=== PATIENT | male | born 1985 | race African-American/Black ===

== ENCOUNTER 2017-03-19 11:22 | Emergency (ER) | payer OTHER ==
[~2017-03-19] VITALS: Ht 182.9 cm; Wt 136.1 kg
[2017-03-19 11:39] VITALS: BP 138/96
[2017-03-19] MEDS ORDERED: NAPROSYN500 MG PO (12:39)
== END 2017-03-19 12:55 | disposition home or self-care (01) ==
LOC: EME 11:22
PROC: 0H9QXZZ Drainage of Finger Nail, External Approach (ICD-10-PCS; principal; 2017-03-19)
DX: S60.131A Contusion of right middle finger with damage to nail, initial encounter (principal); S60.141A Contusion of right ring finger with damage to nail, initial encounter; W23.0XXA Caught, crushed, jammed, or pinched between moving objects, initial encounter
CPT/HCPCS: 73130; 99281; 99284

== ENCOUNTER 2017-05-20 05:50 | Emergency (ER) | payer OTHER ==
[~2017-05-20] VITALS: Ht 182.9 cm; Wt 144.8 kg
[~2017-05-20 05:50] MED LIST: NAPROSYN500 MG PO
[2017-05-20 07:02] LABS: EOSINOPHIL (%) 0.6 % (0-5); IMMATURE GRANULOCYTE (%) 0.6 % (0.0-0.7); INSTRUMENT ABS NEUTROPHIL CT 4.4 K/uL; MCH 26.5 PG (29.0-34.0); MCHC 33.1 G/DL (30.0-36.0); MCV 80.1 FL (86-99); MEAN PLAT.VOLUME 11.7 uM^3 (9.0-12.4); MONOCYTE (%) 9.2 % (3-12); MONOCYTE COUNT 0.7 K/uL (0-0.8); NEUTROPHIL (%) 61.4 % (45-76); NEUTROPHIL COUNT 4.4 K/uL (1.8-6.4); PLATELET COUNT 166 K/uL (156-360); RBC DIS.WIDTH-CV 14.1 % (11.8-14.6); RBC DIS.WIDTH-SD 41.1 % (39-53); RED BLOOD COUNT 5.62 M/uL (4.00-5.50); WHITE BLOOD COUNT 7.1 K/uL (4.1-10.2)
[2017-05-20 07:14] LABS: D-DIMER ELISA 0.26 mg/L FEU (< 0.57)
[2017-05-20 07:33] LABS: CHLORIDE 103 mEq/L (99-109); POTASSIUM 4.1 mEq/L (3.7-5.4); SODIUM 137 mEq/L (136-147)
[2017-05-20 07:34] LABS: TROP-I INTERPRETATION NEGATIVE; TROPONIN-I < 0.01 ng/mL (0.0-0.30)
[2017-05-20 07:36] LABS: GLUCOSE 112 mg/dL (70-99)
[2017-05-20 07:37] LABS: ANION GAP 9 MEQ/L (2-14)
[2017-05-20 07:38] LABS: TOTAL BILIRUBIN 0.4 mg/dL (0.0-1.0)
[2017-05-20 07:39] LABS: ALKALINE PHOSPHATASE 80 IU/L (3-129); GFR ESTIMATE (CALCULATED) > 59 mL/min/
[2017-05-20 07:40] LABS: UREA NITROGEN (BUN) 12 mg/dL (9-23)
[2017-05-20 09:30] LABS: TROP-I INTERPRETATION NEGATIVE; TROPONIN-I < 0.01 ng/mL (0.0-0.30)
[2017-05-20 10:46] VITALS: BP 142/90
== END 2017-05-20 10:46 | disposition home or self-care (01) ==
LOC: EME 05:50
PROVIDERS: Emergency Medicine
DX: R00.2 Palpitations (principal); I10 Essential (primary) hypertension
CPT/HCPCS: 71020; 80053; 84484; 85025; 85379; 93005; 99281; 99284

== ENCOUNTER 2017-05-23 01:26 | Emergency (ER) | payer OTHER ==
[~2017-05-23] VITALS: Ht 182.9 cm; Wt 144.9 kg
[2017-05-23 01:48] LABS: HEMATOCRIT 45.9 % (38.0-50.0); MCH 26.2 PG (29.0-34.0); MCHC 32.5 G/DL (30.0-36.0); MCV 80.7 FL (86-99); MEAN PLAT.VOLUME 11.2 uM^3 (9.0-12.4); PLATELET COUNT 173 K/uL (156-360); RBC DIS.WIDTH-CV 14.1 % (11.8-14.6); RBC DIS.WIDTH-SD 40.9 % (39-53); RED BLOOD COUNT 5.69 M/uL (4.00-5.50); WHITE BLOOD COUNT 7.9 K/uL (4.1-10.2)
[2017-05-23 01:58] LABS: CHLORIDE 106 mEq/L (99-109); POTASSIUM 3.8 mEq/L (3.7-5.4); SODIUM 139 mEq/L (136-147)
[2017-05-23 01:59] LABS: GLUCOSE 143 mg/dL (70-99)
[2017-05-23 02:01] LABS: ANION GAP 9 MEQ/L (2-14)
[2017-05-23 02:03] LABS: GFR ESTIMATE (CALCULATED) > 59 mL/min/
[2017-05-23 02:04] LABS: UREA NITROGEN (BUN) 9 mg/dL (9-23)
[2017-05-23 05:36] LABS: TROP-I INTERPRETATION NEGATIVE; TROPONIN-I < 0.01 ng/mL (0.0-0.30)
[2017-05-23] MEDS ORDERED: VENTOLIN HFA18 GM IH (05:38)
[2017-05-23 06:13] VITALS: BP 128/80
== END 2017-05-23 06:15 | disposition home or self-care (01) ==
LOC: EME 01:26
DX: R06.00 Dyspnea, unspecified (principal); R51 Headache; I10 Essential (primary) hypertension; I45.10 Unspecified right bundle-branch block
CPT/HCPCS: 71020; 80048; 84484; 85027; 93005; 94640; 99281; 99283